=== PATIENT | male | born 1945 | race African-American/Black ===

== ENCOUNTER 2016-11-14 12:39 | Emergency (ER) | payer OTHER ==
[~2016-11-14 12:39] MED LIST: ATEN25 PO; BIST PO; CARASPUDL PO; COREG3 PO; DICLOFENAC PO; DSS PO; EXCEDRIN EXTRA1 EACH PO; FLONASE NAS; KEPPRA1000 MG PO; KEPPRA750 MG PO; NASONEX NAS; NEXIUM40 PO; P5 PO; PRIN10 PO; PROTONIX PO; TRILEP300 PO; TRILEPUDL PO; ULTRAM50 PO; VIMPAT100 MG PO; VIMPAT150 MG PO; XARELTO15 MG PO; XARELTO20 MG PO
== END 2016-11-14 12:53 | disposition home or self-care (01) ==
LOC: ER 12:39
DX: S00.03XA Contusion of scalp, initial encounter (principal); G40.909 Epilepsy, unspecified, not intractable, without status epilepticus; I10 Essential (primary) hypertension; K21.9 Gastro-esophageal reflux disease without esophagitis; Z79.899 Other long term (current) drug therapy; Z79.52 Long term (current) use of systemic steroids; W19.XXXA Unspecified fall, initial encounter
CPT/HCPCS: 70450; 72050; 99285